=== PATIENT | female | born 1960 | race Caucasian/White ===

== ENCOUNTER → 2016-10-02 | Outpatient (CLI) | payer MEDICARE, MEDICAID ==
[~2016-10-02] VITALS: Ht 172.7 cm; Wt 105.5 kg
[~2016-10-02] MED LIST: BUDE10.2 IH; FLUT16H NASAL; LEVO100 PO; LEVO25TA36 PO; OMEP20 PO; PRED1TAB PO; PROMDM5L PO; RANI150T7 PO; TRAZ-144 PO
[2016-10-02 12:04] VITALS: BP 145/85
== END | disposition home or self-care (01) ==
LOC: SRCNTR 11:59
PROVIDERS: ATTEND Internal Medicine Critical Care Medicine
DX: J44.9 Chronic obstructive pulmonary disease, unspecified (principal); E03.9 Hypothyroidism, unspecified; J84.111 Idiopathic interstitial pneumonia, not otherwise specified; R05 Cough; G47.33 Obstructive sleep apnea (adult) (pediatric); E27.1 Primary adrenocortical insufficiency
CPT/HCPCS: G0463

== ENCOUNTER → 2016-11-30 | Outpatient (CLI) | payer MEDICARE, MEDICAID ==
[~2016-11-30] VITALS: Ht 172.7 cm; Wt 103.5 kg
[2016-11-30 13:50] VITALS: BP 135/92
== END | disposition home or self-care (01) ==
LOC: SRCNTR 13:47
PROVIDERS: ATTEND Internal Medicine Critical Care Medicine
DX: G47.33 Obstructive sleep apnea (adult) (pediatric) (principal); E27.1 Primary adrenocortical insufficiency; J44.1 Chronic obstructive pulmonary disease with (acute) exacerbation; E03.9 Hypothyroidism, unspecified; J84.111 Idiopathic interstitial pneumonia, not otherwise specified; R05 Cough; H54.7 Unspecified visual loss
CPT/HCPCS: G0463

== ENCOUNTER 2017-01-21 08:28 | Emergency (ER) | payer MEDICARE, MEDICAID ==
[~2017-01-21] VITALS: Ht 172.7 cm; Wt 102.3 kg
[~2017-01-21 08:28] MED LIST changes: -LEVO25TA36 PO; -OMEP20 PO
[2017-01-21 09:22] LABS: BASOPHILS % (AUTO) 0.1 % (0.0-2.0); EOSINOPHILS % (AUTO) 2.1 % (1.0-6.0); HEMATOCRIT 46.6 % (36-46); LYMPHOCYTES # (AUTO) 2.1 K/uL (1.0-4.8); LYMPHOCYTES % (AUTO) 13.7 % (22.0-44.0); MEAN CORPUSCULAR HGB CONC 34.4 G/dL (31.0-37.0); MEAN CORPUSCULAR VOLUME 93 fL (80-100); MONOCYTES # (AUTO) 0.3 K/uL (0.1-1.0); MONOCYTES % (AUTO) 2.1 % (2.0-9.0); NEUTROPHILS # (AUTO) 12.7 K/uL (1.8-7.7); PLATELET COUNT (AUTO) 304 K/uL (150-450); RED BLOOD CELL COUNT(AUTO) 5.01 MIL/uL (4.00-5.20); WHITE BLOOD COUNT (AUTO) 15.4 K/uL (4.5-11.0)
[2017-01-21 09:39] LABS: CALCIUM, TOTAL 9.4 mg/dL (8.8-10.5); CREATININE 1.7 mg/dL (0.60-1.30); POTASSIUM 3.3 mmol/L (3.5-5.1)
[2017-01-21 09:44] LABS: ALBUMIN 4.1 g/dL (3.4-5.0); TOTAL PROTEIN, SERUM 7.6 g/dL (6.4-8.2)
[2017-01-21] MEDS ORDERED: LOPERAMIDE HCL 2 MG CAPSULE PO ONE (12:15)
[2017-01-21] MEDS ORDERED: SODIUM CHLORIDE 0.9% 1,000 ML IV ONE ×2 (12:15→14:00)
[2017-01-21] MEDS ORDERED: KETOROLAC TROMETHAMINE 30 MG/ML VIAL IVP ONE (12:15)
[2017-01-21] MEDS ORDERED: ACETAMINOPHEN 1000 MG/ISO-OSM 100 ML IV ONE (12:15)
[2017-01-21] MEDS ORDERED: ONDANSETRON HCL 4 MG/2 ML VIAL IVP ONE (12:15)
[2017-01-21 15:15] LABS: ADD UA MICROSCOPIC NO; APPEARANCE,URINE CLOUDY (CLEAR); GLUCOSE, URINE (UA) NEGATIVE (NEGATIVE); KETONES,URINE 15 mg/dL (NEGATIVE); LEUKOCYTE ESTERASE ,URINE NEGATIVE (NEGATIVE); OCCULT BLOOD,URINE NEGATIVE (NEGATIVE); PROTEIN,URINE POS 1+ (NEGATIVE)
[2017-01-21] MEDS ORDERED: DiphenhydrAMINE HCL 50 MG/ML VIAL IVP ONE (15:30)
[2017-01-21] MEDS ORDERED: METOCLOPRAMIDE HCL 5 MG/ML 2 ML VIAL IVP ONE (15:30)
[2017-01-21 17:40] VITALS: BP 111/69
== END 2017-01-21 17:47 | disposition home or self-care (01) ==
LOC: EMS 08:30
DX: R11.2 Nausea with vomiting, unspecified (principal); D72.829 Elevated white blood cell count, unspecified; R51 Headache; M79.1 Myalgia; R19.7 Diarrhea, unspecified; N28.9 Disorder of kidney and ureter, unspecified; E03.9 Hypothyroidism, unspecified; K21.9 Gastro-esophageal reflux disease without esophagitis; Z88.2 Allergy status to sulfonamides
CPT/HCPCS: 36415; 71010; 80053; 81003; 83690; 85025; 96361; 96365; 96375; 99285; J0131; J1200; J1885; J2405; J2765; J7030

== ENCOUNTER → 2017-01-31 | Outpatient (CLI) | payer MEDICARE, MEDICAID ==
[~2017-01-31] VITALS: Ht 172.7 cm; Wt 102.0 kg
[2017-01-31 13:20] VITALS: BP 121/94
== END | disposition home or self-care (01) ==
LOC: SRCNTR 12:52
PROVIDERS: ATTEND Internal Medicine
DX: J44.9 Chronic obstructive pulmonary disease, unspecified (principal); J32.9 Chronic sinusitis, unspecified; G47.33 Obstructive sleep apnea (adult) (pediatric); D35.2 Benign neoplasm of pituitary gland
CPT/HCPCS: G0463

== ENCOUNTER → 2017-03-14 | Outpatient (CLI) | payer MEDICARE, MEDICAID ==
[~2017-03-14] VITALS: Ht 172.7 cm; Wt 102.0 kg
[~2017-03-14] MED LIST changes: +PROMVCC120 PO
[2017-03-14 14:48] VITALS: BP 140/92
== END | disposition home or self-care (01) ==
LOC: SRCNTR 13:37
PROVIDERS: ATTEND Internal Medicine Critical Care Medicine
DX: G47.33 Obstructive sleep apnea (adult) (pediatric) (principal); E03.9 Hypothyroidism, unspecified; E27.1 Primary adrenocortical insufficiency; J44.1 Chronic obstructive pulmonary disease with (acute) exacerbation; J84.111 Idiopathic interstitial pneumonia, not otherwise specified
CPT/HCPCS: G0463

== ENCOUNTER → 2017-05-17 | Outpatient (CLI) | payer MEDICARE, MEDICAID ==
[~2017-05-17] VITALS: Ht 172.7 cm; Wt 103.5 kg
[~2017-05-17] MED LIST changes: -PROMDM5L PO
[2017-05-17 13:07] VITALS: BP 141/86
== END | disposition home or self-care (01) ==
LOC: SRCNTR 12:52
PROVIDERS: ATTEND Internal Medicine
DX: G47.33 Obstructive sleep apnea (adult) (pediatric) (principal); D35.2 Benign neoplasm of pituitary gland; J44.1 Chronic obstructive pulmonary disease with (acute) exacerbation; E03.9 Hypothyroidism, unspecified; J09.X2 Influenza due to identified novel influenza A virus with other respiratory manifestations; E27.1 Primary adrenocortical insufficiency; Z88.2 Allergy status to sulfonamides
CPT/HCPCS: G0463

== ENCOUNTER → 2017-05-22 | Outpatient (CLI) | payer MEDICARE, MEDICAID | END | disposition home or self-care (01) | LOC: RESP 13:24 | PROVIDERS: ATTEND Internal Medicine | DX: J44.9 Chronic obstructive pulmonary disease, unspecified (principal) | CPT/HCPCS: 94010; 94726; 94727; 94729 ==

== ENCOUNTER → 2017-08-14 | Outpatient (CLI) | payer MEDICARE, MEDICAID ==
[~2017-08-14] VITALS: Ht 172.7 cm; Wt 103.0 kg
[2017-08-14 14:24] VITALS: BP 155/89
== END | disposition home or self-care (01) ==
LOC: SRCNTR 14:19
PROVIDERS: ATTEND Internal Medicine
DX: G47.33 Obstructive sleep apnea (adult) (pediatric) (principal); E66.9 Obesity, unspecified; E27.40 Unspecified adrenocortical insufficiency; D35.2 Benign neoplasm of pituitary gland; J44.9 Chronic obstructive pulmonary disease, unspecified; K21.9 Gastro-esophageal reflux disease without esophagitis; Z88.2 Allergy status to sulfonamides; Z79.52 Long term (current) use of systemic steroids
CPT/HCPCS: G0463

== ENCOUNTER → 2017-10-18 | Outpatient (CLI) | payer MEDICARE, MEDICAID ==
[~2017-10-18] VITALS: Ht 172.7 cm; Wt 108.0 kg
[2017-10-18 12:32] VITALS: BP 149/91
== END | disposition home or self-care (01) ==
LOC: SRCNTR 12:22
PROVIDERS: ATTEND Internal Medicine
DX: G47.33 Obstructive sleep apnea (adult) (pediatric) (principal); D35.2 Benign neoplasm of pituitary gland; J09.X2 Influenza due to identified novel influenza A virus with other respiratory manifestations; J20.9 Acute bronchitis, unspecified; E27.40 Unspecified adrenocortical insufficiency; Z88.2 Allergy status to sulfonamides; Z98.890 Other specified postprocedural states
CPT/HCPCS: G0463

== ENCOUNTER → 2018-02-01 | Outpatient (CLI) | payer MEDICARE, MEDICAID ==
[~2018-02-01] VITALS: Ht 172.7 cm; Wt 110.0 kg
[~2018-02-01] MED LIST changes: -TRAZ-144 PO; +TRAZ-219 PO
[2018-02-01 10:13] VITALS: BP 151/88
== END | disposition home or self-care (01) ==
LOC: SRCNTR 10:02
PROVIDERS: ATTEND Internal Medicine
DX: G47.33 Obstructive sleep apnea (adult) (pediatric) (principal); K21.9 Gastro-esophageal reflux disease without esophagitis; J47.9 Bronchiectasis, uncomplicated; J32.9 Chronic sinusitis, unspecified; J09.X2 Influenza due to identified novel influenza A virus with other respiratory manifestations
CPT/HCPCS: G0463

== ENCOUNTER → 2018-03-21 | Outpatient (CLI) | payer MEDICARE, MEDICAID ==
[~2018-03-21] VITALS: Ht 172.7 cm; Wt 114.0 kg
[~2018-03-21] MED LIST changes: +PANT40TA25 PO
[2018-03-21 10:22] VITALS: BP 146/77
== END | disposition home or self-care (01) ==
LOC: SRCNTR 10:20
PROVIDERS: ATTEND Internal Medicine
DX: G47.33 Obstructive sleep apnea (adult) (pediatric) (principal); K21.9 Gastro-esophageal reflux disease without esophagitis; J32.9 Chronic sinusitis, unspecified
CPT/HCPCS: G0463

== ENCOUNTER → 2018-05-14 | Outpatient (CLI) | payer MEDICAID, MEDICARE ==
[~2018-05-14] VITALS: Ht 172.7 cm; Wt 112.5 kg
[~2018-05-14] MED LIST changes: -RANI150T7 PO
[2018-05-14 09:26] VITALS: BP 138/86
== END | disposition home or self-care (01) ==
LOC: SRCNTR 09:25
PROVIDERS: ATTEND Internal Medicine
DX: G47.33 Obstructive sleep apnea (adult) (pediatric) (principal); R09.82 Postnasal drip; J32.9 Chronic sinusitis, unspecified; K21.9 Gastro-esophageal reflux disease without esophagitis; E66.9 Obesity, unspecified
CPT/HCPCS: G0463

== ENCOUNTER → 2018-06-10 | Outpatient (CLI) | payer MEDICARE, MEDICAID | END | disposition home or self-care (01) | LOC: RADPV 10:47 | PROVIDERS: ATTEND Podiatrist Foot & Ankle Surgery | DX: M72.2 Plantar fascial fibromatosis (principal); M25.774 Osteophyte, right foot; M25.775 Osteophyte, left foot ==

== ENCOUNTER → 2018-10-09 | Outpatient (CLI) | payer MEDICARE, MEDICAID ==
[~2018-10-09] VITALS: Ht 172.7 cm; Wt 114.0 kg
[~2018-10-09] MED LIST changes: -TRAZ-219 PO; +TRAZ-252 PO
[2018-10-09 16:04] VITALS: BP 141/86
== END | disposition home or self-care (01) ==
LOC: SRCNTR 15:11
PROVIDERS: ATTEND Internal Medicine Critical Care Medicine
DX: E27.1 Primary adrenocortical insufficiency (principal); J44.1 Chronic obstructive pulmonary disease with (acute) exacerbation; E03.9 Hypothyroidism, unspecified; J84.111 Idiopathic interstitial pneumonia, not otherwise specified; G47.33 Obstructive sleep apnea (adult) (pediatric)
CPT/HCPCS: G0463

== ENCOUNTER → 2019-05-12 | Outpatient (CLI) | payer MEDICARE, MEDICAID ==
[~2019-05-12] VITALS: Ht 172.7 cm; Wt 107.0 kg
[~2019-05-12] MED LIST changes: +LEVO137T24 PO
[2019-05-12 11:21] VITALS: BP 121/65
== END | disposition home or self-care (01) ==
LOC: SRCNTR 11:20
PROVIDERS: ATTEND Internal Medicine Critical Care Medicine
DX: E27.1 Primary adrenocortical insufficiency (principal); J44.1 Chronic obstructive pulmonary disease with (acute) exacerbation; E03.9 Hypothyroidism, unspecified; J84.111 Idiopathic interstitial pneumonia, not otherwise specified; R05 Cough; G47.33 Obstructive sleep apnea (adult) (pediatric); H54.7 Unspecified visual loss; Z98.890 Other specified postprocedural states; Z79.899 Other long term (current) drug therapy
CPT/HCPCS: G0463

== ENCOUNTER → 2019-07-14 | Outpatient (CLI) | payer MEDICAID, MEDICARE ==
[~2019-07-14] MED LIST changes: -BUDE10.2 IH; -LEVO100 PO; -PANT40TA25 PO
== END | disposition home or self-care (01) ==
LOC: RADPV 10:56
PROVIDERS: ATTEND Internal Medicine Critical Care Medicine
DX: I51.7 Cardiomegaly (principal); J90 Pleural effusion, not elsewhere classified; J44.9 Chronic obstructive pulmonary disease, unspecified

== ENCOUNTER → 2019-07-24 | Outpatient (CLI) | payer MEDICARE, MEDICAID ==
[~2019-07-24] VITALS: Ht 172.7 cm; Wt 104.0 kg
[2019-07-24 16:04] VITALS: BP 141/80
== END | disposition home or self-care (01) ==
LOC: SRCNTR 15:43
PROVIDERS: ATTEND Internal Medicine Critical Care Medicine
DX: E27.1 Primary adrenocortical insufficiency (principal); J44.1 Chronic obstructive pulmonary disease with (acute) exacerbation; E03.9 Hypothyroidism, unspecified; J84.111 Idiopathic interstitial pneumonia, not otherwise specified; R05 Cough; G47.33 Obstructive sleep apnea (adult) (pediatric); H54.7 Unspecified visual loss; J10.1 Influenza due to other identified influenza virus with other respiratory manifestations; Z88.2 Allergy status to sulfonamides; Z79.899 Other long term (current) drug therapy
CPT/HCPCS: G0463

== ENCOUNTER → 2019-09-22 | Outpatient (CLI) | payer MEDICARE, MEDICAID ==
[~2019-09-22] VITALS: Ht 172.7 cm; Wt 107.5 kg
[2019-09-22 11:35] VITALS: BP 140/88
== END | disposition home or self-care (01) ==
LOC: SRCNTR 11:31
PROVIDERS: ATTEND Internal Medicine Critical Care Medicine
DX: J44.1 Chronic obstructive pulmonary disease with (acute) exacerbation (principal); E27.1 Primary adrenocortical insufficiency; E03.9 Hypothyroidism, unspecified; J84.111 Idiopathic interstitial pneumonia, not otherwise specified; G47.33 Obstructive sleep apnea (adult) (pediatric)
CPT/HCPCS: G0463

== ENCOUNTER → 2020-04-27 | Outpatient (CLI) | payer MEDICARE | END | disposition home or self-care (01) | LOC: RADPV 10:10 | PROVIDERS: ATTEND Podiatrist Foot & Ankle Surgery | DX: M77.32 Calcaneal spur, left foot (principal); M19.072 Primary osteoarthritis, left ankle and foot; M77.31 Calcaneal spur, right foot; M19.071 Primary osteoarthritis, right ankle and foot; M79.673 Pain in unspecified foot ==

== ENCOUNTER → 2020-12-30 | Outpatient (CLI) | payer MEDICARE ==
[~2020-12-30] VITALS: Ht 172.7 cm; Wt 107.3 kg
[2020-12-30 12:23] VITALS: BP 143/93
== END | disposition home or self-care (01) ==
LOC: SRCNTR 11:05
PROVIDERS: ATTEND Internal Medicine Critical Care Medicine
DX: E27.1 Primary adrenocortical insufficiency (principal); J44.1 Chronic obstructive pulmonary disease with (acute) exacerbation; E03.9 Hypothyroidism, unspecified; J84.111 Idiopathic interstitial pneumonia, not otherwise specified; R05 Cough; G47.33 Obstructive sleep apnea (adult) (pediatric)
CPT/HCPCS: G0463

== ENCOUNTER → 2021-05-12 | Outpatient (CLI) | payer MEDICARE, MEDICAID | END | disposition home or self-care (01) | LOC: RADPV 14:52 | PROVIDERS: ATTEND Internal Medicine Critical Care Medicine | DX: J98.4 Other disorders of lung (principal); J44.9 Chronic obstructive pulmonary disease, unspecified | CPT/HCPCS: 71046 ==

== ENCOUNTER → 2021-05-13 | Outpatient (CLI) | payer MEDICARE, MEDICAID ==
[~2021-05-13] VITALS: Ht 172.7 cm; Wt 105.0 kg
[2021-05-13 10:12] VITALS: BP 149/93
== END | disposition home or self-care (01) ==
LOC: SRCNTR 09:56
PROVIDERS: ATTEND Internal Medicine Critical Care Medicine
DX: E27.1 Primary adrenocortical insufficiency (principal); J44.1 Chronic obstructive pulmonary disease with (acute) exacerbation; E03.9 Hypothyroidism, unspecified; J84.111 Idiopathic interstitial pneumonia, not otherwise specified; R05.9 Cough, unspecified; G47.33 Obstructive sleep apnea (adult) (pediatric)
CPT/HCPCS: G0463; Z7500

== ENCOUNTER → 2021-08-10 | Outpatient (CLI) | payer MEDICARE, MEDICAID ==
[~2021-08-10] MED LIST changes: +HYDR-4072 PO
== END | disposition home or self-care (01) ==
LOC: RADPV 13:04
PROVIDERS: ATTEND Internal Medicine Critical Care Medicine
DX: J90 Pleural effusion, not elsewhere classified (principal); I51.7 Cardiomegaly; I70.0 Atherosclerosis of aorta; M47.9 Spondylosis, unspecified
CPT/HCPCS: 71046

== ENCOUNTER → 2021-08-31 | Outpatient (CLI) | payer MEDICARE, MEDICAID ==
[~2021-08-31] VITALS: Ht 165.1 cm; Wt 100.0 kg
[2021-08-31 13:09] VITALS: BP 127/82
== END | disposition home or self-care (01) ==
LOC: SRCNTR 12:27
PROVIDERS: ATTEND Internal Medicine Critical Care Medicine
DX: I51.7 Cardiomegaly (principal); R05.3 Chronic cough; J90 Pleural effusion, not elsewhere classified; I10 Essential (primary) hypertension; Z88.8 Allergy status to other drugs, medicaments and biological substances; Z79.899 Other long term (current) drug therapy
CPT/HCPCS: G0463

== ENCOUNTER → 2021-12-01 | Outpatient (CLI) | payer MEDICARE, MEDICAID ==
[~2021-12-01] VITALS: Ht 172.7 cm; Wt 105.0 kg
[2021-12-01 14:31] VITALS: BP 138/92
== END | disposition home or self-care (01) ==
LOC: SRCNTR 10:06
PROVIDERS: ATTEND Internal Medicine Critical Care Medicine
DX: G47.33 Obstructive sleep apnea (adult) (pediatric) (principal); J44.9 Chronic obstructive pulmonary disease, unspecified; E03.9 Hypothyroidism, unspecified; R05.9 Cough, unspecified; E27.1 Primary adrenocortical insufficiency
CPT/HCPCS: G0463

== ENCOUNTER → 2022-01-19 | Outpatient (CLI) | payer MEDICARE, MEDICAID ==
[~2022-01-19] VITALS: Ht 167.6 cm; Wt 109.0 kg
[2022-01-19 14:25] VITALS: BP 137/70
== END | disposition home or self-care (01) ==
LOC: SRCNTR 12:13
PROVIDERS: ATTEND Internal Medicine Critical Care Medicine
DX: E03.9 Hypothyroidism, unspecified (principal); E27.40 Unspecified adrenocortical insufficiency; H54.7 Unspecified visual loss; J10.1 Influenza due to other identified influenza virus with other respiratory manifestations
CPT/HCPCS: G0463

== ENCOUNTER → 2022-04-26 | Outpatient (CLI) | payer MEDICARE, MEDICAID ==
[~2022-04-26] VITALS: Ht 167.6 cm; Wt 108.0 kg
[2022-04-26 12:48] VITALS: BP 132/69
== END | disposition home or self-care (01) ==
LOC: SRCNTR 12:07
PROVIDERS: ATTEND Internal Medicine Pulmonary Disease
DX: E03.9 Hypothyroidism, unspecified (principal); G47.33 Obstructive sleep apnea (adult) (pediatric); J44.1 Chronic obstructive pulmonary disease with (acute) exacerbation; E27.40 Unspecified adrenocortical insufficiency; H54.7 Unspecified visual loss; D35.2 Benign neoplasm of pituitary gland; J10.1 Influenza due to other identified influenza virus with other respiratory manifestations; R05.3 Chronic cough
CPT/HCPCS: G0463

== ENCOUNTER → 2022-08-29 | Outpatient (CLI) | payer MEDICARE, MEDICAID ==
[~2022-08-29] VITALS: Ht 172.7 cm; Wt 106.0 kg
[~2022-08-29] MED LIST changes: +ALBU8HFA IH; +BUDE10.26 IH; +DICL100G51 TP; -FLUT16H NASAL; +FLUT16SP NASAL; +LIDO700A15 TP
[2022-08-29 10:57] VITALS: BP 128/78
== END | disposition home or self-care (01) ==
LOC: SRCNTR 10:37
PROVIDERS: ATTEND Internal Medicine Pulmonary Disease
DX: J44.1 Chronic obstructive pulmonary disease with (acute) exacerbation (principal); G47.33 Obstructive sleep apnea (adult) (pediatric); E03.9 Hypothyroidism, unspecified; R05.3 Chronic cough; E27.1 Primary adrenocortical insufficiency; J18.8 Other pneumonia, unspecified organism; M25.569 Pain in unspecified knee; E66.9 Obesity, unspecified; H54.7 Unspecified visual loss; J10.1 Influenza due to other identified influenza virus with other respiratory manifestations
CPT/HCPCS: G0463; Z7500

== ENCOUNTER → 2022-10-18 | Outpatient (CLI) | payer MEDICARE, MEDICAID ==
[~2022-10-18] MED LIST changes: +ALBU18HF12 IH; -ALBU8HFA IH
== END | disposition home or self-care (01) ==
LOC: RADMN 12:11
PROVIDERS: ATTEND Podiatrist Foot & Ankle Surgery
DX: M19.072 Primary osteoarthritis, left ankle and foot (principal); M77.32 Calcaneal spur, left foot; M79.672 Pain in left foot

== ENCOUNTER → 2022-12-19 | Outpatient (CLI) | payer MEDICARE, MEDICAID ==
[~2022-12-19] VITALS: Ht 167.6 cm; Wt 106.8 kg
[2022-12-19 15:04] VITALS: BP 131/75
== END | disposition home or self-care (01) ==
LOC: SRCNTR 11:53
PROVIDERS: ATTEND Internal Medicine Pulmonary Disease
DX: J44.1 Chronic obstructive pulmonary disease with (acute) exacerbation (principal); E27.1 Primary adrenocortical insufficiency; E03.9 Hypothyroidism, unspecified; J84.111 Idiopathic interstitial pneumonia, not otherwise specified; G47.33 Obstructive sleep apnea (adult) (pediatric); M25.569 Pain in unspecified knee; E66.9 Obesity, unspecified
CPT/HCPCS: G0463; Z7500

== ENCOUNTER → 2023-03-14 | Outpatient (CLI) | payer MEDICARE, MEDICAID ==
[~2023-03-14] MED LIST changes: -DICL100G51 TP; +DICL100G60 TP
== END | disposition home or self-care (01) ==
LOC: RADMN 11:36
PROVIDERS: ATTEND Internal Medicine Pulmonary Disease
DX: R05.9 Cough, unspecified (principal); J44.9 Chronic obstructive pulmonary disease, unspecified
CPT/HCPCS: 71046

== ENCOUNTER → 2023-03-15 | Outpatient (CLI) | payer MEDICARE, MEDICAID ==
[~2023-03-15] VITALS: Ht 172.7 cm; Wt 106.0 kg
[2023-03-15 12:41] VITALS: BP 117/67; PULSE 87; RESP 16; TEMP 98.3; O2SAT 94
== END | disposition home or self-care (01) ==
LOC: SRCNTR 12:12
PROVIDERS: ATTEND Internal Medicine Pulmonary Disease
DX: R05.3 Chronic cough (principal); J44.9 Chronic obstructive pulmonary disease, unspecified; E03.9 Hypothyroidism, unspecified; E27.1 Primary adrenocortical insufficiency; J84.111 Idiopathic interstitial pneumonia, not otherwise specified; G47.33 Obstructive sleep apnea (adult) (pediatric); M25.569 Pain in unspecified knee; E66.09 Other obesity due to excess calories; Z79.899 Other long term (current) drug therapy; Z88.2 Allergy status to sulfonamides
CPT/HCPCS: G0463; Z7500

== ENCOUNTER 2023-11-13 18:59 | Emergency (ER) | payer MEDICARE, MEDICAID ==
[~2023-11-13] VITALS: Ht 162.6 cm; Wt 100.0 kg
[~2023-11-13 18:59] MED LIST changes: +PROM473S6 PO
[2023-11-13] MEDS ORDERED: GABA-1201 PO (19:17)
[2023-11-13 19:56] LABS: APPEARANCE,URINE CLEAR (CLEAR); BILIRUBIN,URINE NEGATIVE (NEGATIVE); COLOR,URINE COLORLESS (YELLOW); GLUCOSE, URINE (UA) NEGATIVE (NEGATIVE); KETONES,URINE NEGATIVE (NEGATIVE); LEUKOCYTE ESTERASE ,URINE NEGATIVE (NEGATIVE); NITRATE,URINE NEGATIVE (NEGATIVE); OCCULT BLOOD,URINE NEGATIVE (NEGATIVE); PROTEIN,URINE NEGATIVE (NEGATIVE); SPECIFIC GRAVITIY, URINE 1.008 (1.003-1.030); UROBILINOGEN,URINE <=1.0 mg/dL (<=1.0)
[2023-11-13] MEDS: LIDOCAINE 5% TRANSDERMAL PATCH TD ONE (21:03)
[2023-11-13] MEDS: KETOROLAC TROMETHAMINE 30 MG/ML VIAL IM ONE (21:03)
[2023-11-13 21:04] LABS: BASOPHILS % (AUTO) 1.1 % (0.0-2.0); EOSINOPHILS % (AUTO) 4.9 % (1.0-6.0); HEMATOCRIT 39.8 % (36-46); HEMOGLOBIN 13.4 g/dL (12.0-16.0); LYMPHOCYTES # (AUTO) 3.4 K/uL (1.0-4.8); MEAN CORPUSCULAR HEMOGLOBIN 31.7 pg (26.0-34.0); MEAN CORPUSCULAR HGB CONC 33.6 G/dL (31.0-37.0); MEAN CORPUSCULAR VOLUME 94 fL (80-100); MONOCYTES # (AUTO) 0.7 K/uL (0.1-1.0); MONOCYTES % (AUTO) 6.1 % (2.0-9.0); NEUTROPHILS # (AUTO) 6.9 K/uL (1.8-7.7); NEUTROPHILS % (AUTO) 58.9 % (40.0-70.0); PLATELET COUNT (AUTO) 284 K/uL (150-450); RED BLOOD CELL COUNT(AUTO) 4.21 MIL/uL (4.00-5.20); RED CELL DISTRIBUTION WIDTH 14.7 % (11.5-14.5); WHITE BLOOD COUNT (AUTO) 11.7 K/uL (4.5-11.0)
[2023-11-13 21:13] LABS: CALCIUM, TOTAL 9.9 mg/dL (8.8-10.5); CREATININE 1.26 mg/dL (0.60-1.30); POTASSIUM 3.6 mmol/L (3.5-5.1)
[2023-11-13 21:18] LABS: ALBUMIN 4.2 g/dL (3.4-5.0); BILIRUBIN,TOTAL 0.4 mg/dL (0.1-1.0); TOTAL PROTEIN, SERUM 7.5 g/dL (6.4-8.2)
[2023-11-13 21:57] VITALS: BP 150/90; PULSE 72; RESP 16; TEMP 98.4
[2023-11-13] MEDS ORDERED: HYDR-4062 PO (22:04)
== END 2023-11-13 22:21 | disposition home or self-care (01) ==
LOC: EMS 19:02
DX: G89.29 Other chronic pain (principal); M54.50 Low back pain, unspecified; M54.30 Sciatica, unspecified side; E03.9 Hypothyroidism, unspecified; Z88.2 Allergy status to sulfonamides
CPT/HCPCS: 99283; 80053; 81003; 85025; 36415; 96372; J1885